=== PATIENT | female | born 1970 | race Caucasian/White ===

== ENCOUNTER → 2016-07-17 | Outpatient (CLI) | payer OTHER ==
[2016-07-17 13:59] LABS: CH 31.4; CHCM 34.5; HCT 36.7 % (34.0-46.0); HDW 3.41; HGB 12.3 gm/dL (11.4-16.0); MCH 30.6 pg (25.0-35.0); MCHC 33.5 g/dL (31.0-37.0); MCV 91.4 fL (80.0-100.0); Mean Platelet Volume 8.9; Poikilocytosis Slight; RBC 4.01 m/uL (3.80-5.40); RDW 14.3 % (11.5-15.5); WBC 9.4 k/uL (3.8-10.6)
[2016-07-17 14:21] LABS: ALT 74 U/L (9-52); AST 38 U/L (14-36); Alkaline Phosphatase 59 U/L (38-126); Anion Gap 12 mmol/L; Blood Urea Nitrogen 16 mg/dL (7-17); Calcium 10.3 mg/dL (8.4-10.2); Carbon Dioxide 28 mmol/L (22-30); Chloride 102 mmol/L (98-107); Glucose 88 mg/dL (74-99); Magnesium 1.8 mg/dL (1.6-2.3); Non-African American GFR(MDRD) >60 (>60 ml/min/1.73 sqM); Phosphorous 3.7 mg/dL (2.5-4.5); Potassium 4.1 mmol/L (3.5-5.1); Sodium 142 mmol/L (137-145); Total Bilirubin 0.6 mg/dL (0.2-1.3); Total Protein 7.3 g/dL (6.3-8.2)
[2016-07-17 14:29] LABS: Prealbumin 25 mg/dL (18-36)
[2016-07-17 15:08] LABS: Vitamin B12 672 pg/mL (239-931)
== END | disposition home or self-care (01) ==
LOC: LABWHC1 13:14
PROVIDERS: ATTEND Surgery
DX: E66.01 Morbid (severe) obesity due to excess calories (principal)
CPT/HCPCS: 36415; 80053; 82607; 83735; 84100; 84134; 84425; 85027

== ENCOUNTER → 2016-07-20 | Outpatient (CLI) | payer OTHER ==
[~2016-07-20] MED LIST: IMMUNE GLOBULIN (HUMAN-IGG) 20 GM in EMPTY BAG 1 BAG IV ONE; IMMUNE GLOBULIN (HUMAN-IGG) 5 GM in EMPTY BAG 1 BAG IV ONE; SODIUM CHLORIDE 0.9% 1,000 ML IV ONE; SODIUM CHLORIDE 0.9% 250 ML in EMPTY BAG 1 BAG IV PRN; diphenhydrAMINE 50 MG/ML 1 ML VIAL IVP ONE
[2016-07-20 08:25] VITALS: TEMP 98.1
[2016-07-20] MEDS: SODIUM CHLORIDE 0.9% 500 ML in EMPTY BAG 1 BAG IV PRN ×2 (08:25→09:31)
[2016-07-20 11:29] VITALS: BP 108/60; PULSE 75; RESP 20
== END | disposition home or self-care (01) ==
LOC: PROCWHC3 07:54
PROVIDERS: ATTEND Psychiatry & Neurology Neurology
DX: G70.01 Myasthenia gravis with (acute) exacerbation (principal)
CPT/HCPCS: 96361; 96365; 96366; 96375; J1200; J1569 ×2

== ENCOUNTER → 2016-07-26 | Outpatient (CLI) | payer OTHER ==
[2016-07-26 10:06] VITALS: BP 119/70; PULSE 95; RESP 16; TEMP 98.5; BMI 37.2
--- NOTE | 2016-07-26 14:21 | P.PN ---
Subjective S/P sleeve gastrectomy 46 years old female with morbid obesity initial BMI 41.8, height 64 inches, weight 244 pounds presents for post op evaluation. No abdominal pain. No nausea or vomiting. No dysphagia. No chest pain. Tolerating diet as per protocol. Constipation on dulcolax daily. No reflux Postoperative visit #1, weight 104.68 KG, BMI 38.4 Postoperative visit #2, weight 99.9KG, BMI 37.2 Review of Systems Constitutional: Denies fever, weight loss or loss of appetite HEENT: No difficulty in vision or hearing. Denies dysphagia. Cardiovascular: Denies chest pain, palpitations, dizziness, shortness of breath. Respiratory: No cough, shortness of breath. Gastrointestinal: No recent change in bowel habits, no abdominal pain, no nausea or vomiting. Integumentary: No skin breakdown or ulcers Genitourinary: Reports mild urinary incontinence, no hematuria or dysuria Neurologic: No seizures, denies weakness in upper or lower extremities Musculoskeletal: Chronic back pain that limits her standing and working. Psychiatry: Denies depression, no suicidal ideation, no anxiety or psychosis Breasts: Previous breast biopsy for benign disease. Patient is due for screening mammogram. Endocrine: No diabetes, no thyroid problems Lymphatic/hematologic: No easy bruising or hemarthrosis. R Past Medical History Past Medical History: GERD/Reflux, Hypertension Additional Past Medical History / Comment(s): preeclampsia, urethra divericulum , ovarian cyst, irregular menses History of Any Multi-Drug Resistant Organisms: None Reported Past Surgical History: Breast Surgery (breast biopsy), Section Additional Past Surgical History / Comment(s): Colonoscopy. Band ligation for hemorrhoids. Past Anesthesia/Blood Transfusion Reactions: No Reported Reaction Past Psychological History: No Psychological Hx Reported Additional Psychological History / Comment(s): Patient has 7 living children. Age range 9 years to 22 years. She has good social support system Smoking Status: Never smoker Past Alcohol Use History: None Reported Past Drug Use History: None Reported - Past Family History Mother Family Medical History: Diabetes Mellitus Additional Family Medical History / Comment(s): Father side history of diabetes. Objective - Vital Signs Vital signs: Vital Signs Temp 98.5 F 07/26/16 10:03 Pulse 95 07/26/16 10:03 Resp 16 07/26/16 10:03 BP 119/70 07/26/16 10:03 Pulse Ox Intake & Output 07/25/16 07/26/16 07/26/16 18:59 06:59 18:59 Weight 99.932 kg - Exam General: Patient is alert and oriented to time, place and person and cooperative with exam. She is not in acute distress. HEENT: No pallor, no icterus, no thyroid enlargement, no cervical lymphadenopathy. Chest: Bilateral equal breath sounds present. No wheezes, no crackles. Cardiovascular: Regular rate and rhythm. Abdomen: Soft, nontender, nondistended. No right upper quadrant tenderness. Oliver sign negative. Well-healed surgical scars. No infection Integumentary: No ulcers or dermatitis dermatitis. Neurologic: Cranial nerves II-XII intact. Strength upper and lower extremities 5/5. No focal neurologic deficits. Gait is normal. Psychiatric: No anxiety or psychosis. No suicidal thoughts. Assessment and Plan (1) Obesity (BMI 30-39.9) Status: Acute (2) Hypertension Status: Chronic (3) Myasthenia gravis Status: Chronic Plan: 1. Continue MVI 2. Follow up with neurologist in Jul . Currently off CellCept and taking IVIG every 3 weeks 3. Follow up at the bariatric center in 2 months 4. Patient moving out of [facility] to [place]. Recommend finding a local bariatric center when she moves
== END | disposition home or self-care (01) ==
LOC: BARWHC3 09:43
PROVIDERS: ATTEND Surgery
DX: Z48.815 Encounter for surgical aftercare following surgery on the digestive system (principal); Z71.3 Dietary counseling and surveillance; E66.9 Obesity, unspecified; Z68.37 Body mass index [BMI] 37.0-37.9, adult; I10 Essential (primary) hypertension; G70.00 Myasthenia gravis without (acute) exacerbation; K59.00 Constipation, unspecified
CPT/HCPCS: 99211

== ENCOUNTER → 2016-09-06 | Outpatient (CLI) | payer OTHER ==
[~2016-09-06] MED LIST changes: -IMMUNE GLOBULIN (HUMAN-IGG) 5 GM in EMPTY BAG 1 BAG IV ONE; +SODIUM CHLORIDE 0.9% 500 ML in EMPTY BAG 1 BAG IV PRN
[2016-09-06 07:48] VITALS: RESP 16; TEMP 97.7
[2016-09-06 14:08] VITALS: BP 115/67; PULSE 72
== END | disposition home or self-care (01) ==
LOC: PROCWHC3 07:29
PROVIDERS: ATTEND Psychiatry & Neurology Neurology
DX: G70.01 Myasthenia gravis with (acute) exacerbation (principal)
CPT/HCPCS: 96360; 96366; 96375; J1200; J1569